=== PATIENT | male | born 1950 | race Caucasian/White ===

== ENCOUNTER → 2023-06-24 14:40 | Outpatient (REF) | payer OTHER, SELFPAY | LOC: HWRCS 14:40 | PROVIDERS: ATTENDING PHYSICIAN Internal Medicine; FAMILY PHYSICIAN Internal Medicine | DX: I42.8 Other cardiomyopathies (principal); I44.7 Left bundle-branch block, unspecified; I50.32 Chronic diastolic (congestive) heart failure; R53.83 Other fatigue | CPT/HCPCS: 93306 ==

== ENCOUNTER → 2024-10-26 13:43 | Outpatient (REF) | payer OTHER, SELFPAY | LOC: HWRCS 13:43 | PROVIDERS: ATTENDING PHYSICIAN Internal Medicine; FAMILY PHYSICIAN Internal Medicine | DX: I42.8 Other cardiomyopathies (principal); I44.7 Left bundle-branch block, unspecified; I50.32 Chronic diastolic (congestive) heart failure | CPT/HCPCS: 93306 ==